=== PATIENT | female | born 2005 | race Caucasian/White ===

== ENCOUNTER 2023-01-31 21:05 | Emergency (ER) | payer OTHER ==
[~2023-01-31] VITALS: Ht 167.6 cm; Wt 66.6 kg
[2023-01-31] MEDS ORDERED: PREN1CHW PO (21:11)
[2023-01-31 21:55] LABS: BASO # 0.1 10^3/uL (0.0-0.2); BASO % 0.6 % (0.0-1.0); EOS # 0.2 10^3/uL (0.0-0.5); EOS % 2.1 % (0.0-3.0); HEMATOCRIT 37.2 % (36.0-47.0); HEMOGLOBIN 12.6 g/dl (12.0-15.5); LYMPH # 2.1 10^3/uL (1.5-5.0); LYMPH % 19.4 % (24.0-44.0); MEAN CORPUSCULAR HEMOGLOBIN 29.4 pg (27.0-33.0); MEAN CORPUSCULAR HGB CONC 33.9 g/dl (32.0-36.5); MEAN CORPUSCULAR VOLUME 86.7 fl (80.0-96.0); MONO # 0.8 10^3/uL (0.0-0.8); MONO % 7.7 % (2.0-8.0); NEUTROPHILS # 7.6 10^3/uL (1.5-8.5); NEUTROPHILS % 69.9 % (36.0-66.0); PLATELET COUNT, AUTOMATED 241 10^3/uL (150-450); RED BLOOD COUNT 4.29 10^6/uL (4.00-5.40); WHITE BLOOD COUNT 10.8 10^3/uL (4.0-10.0)
[2023-01-31 22:30] LABS: APPEARANCE, URINE CLEAR (CLEAR); BACTERIA, URINE AUTO 2+ (NEGATIVE); BILIRUBIN, URINE AUTO NEGATIVE (NEGATIVE); BLOOD, URINE BLOOD NEGATIVE (NEGATIVE); COLOR, URINE STRAW (YELLOW); GLUCOSE, URINE (UA) AUTO NEGATIVE (NEGATIVE); KETONE, URINE AUTO NEGATIVE (NEGATIVE); LEUKOCYTE ESTERASE, URINE AUTO NEGATIVE (NEGATIVE); MUCUS, URINE SMALL (NEGATIVE); NITRITE, URINE AUTO NEGATIVE (NEGATIVE); PROTEIN, URINE AUTO NEGATIVE (NEGATIVE); RBC, URINE AUTO 0 /HPF (0-3); SPECIFIC GRAVITY URINE AUTO 1.004 (1.002-1.035); SQUAMOUS EPITHELIAL CELL UR AU 3 /HPF (0-6); UROBILINOGEN, URINE AUTO 0.2 mg/dL (0.0-2.0); WBC, URINE AUTO 1 /HPF (0-3)
[2023-01-31 22:45] LABS: HCG, SERUM QUANTITATIVE 77528.7 MIU/ML (<4.2)
[2023-01-31 23:37] LABS: LIPASE 29 U/L (12-53)
[2023-01-31 23:39] LABS: ALBUMIN 3.8 G/DL (3.2-5.2); ALKALINE PHOSPHATASE 74 U/L (46-116); ALT/SGPT 18 U/L (7.0-40); AST/SGOT < 8 U/L (<34); BILIRUBIN,DIRECT < 0.1 MG/DL (<0.4); BILIRUBIN,TOTAL 0.2 MG/DL (0.3-1.2); BLOOD UREA NITROGEN 6 MG/DL (9-23); CALCIUM LEVEL 9.6 MG/DL (8.5-10.1); CARBON DIOXIDE LEVEL 26 MMOL/L (20-31); CHLORIDE LEVEL 105 MMOL/L (98-107); CREATININE FOR GFR 0.52 MG/DL (0.55-1.30); GLUCOSE, FASTING 84 MG/DL (60-100); POTASSIUM SERUM 4.6 MMOL/L (3.5-5.1); SODIUM LEVEL 136 MMOL/L (136-145); TOTAL PROTEIN 6.7 G/DL (5.7-8.2)
[2023-01-31] MEDS ORDERED: MAALOX 30 ML SUSP *UDC PO ONE (23:40)
[2023-02-01 02:00] VITALS: BP 108/58; TEMP 98.6; O2SAT 100
[2023-02-02] MEDS ORDERED: NITR1CAP11 PO (16:41)
== END 2023-02-01 02:16 | disposition home or self-care (01) ==
LOC: M ED 21:05
DX: O99.611 Diseases of the digestive system complicating pregnancy, first trimester (principal); K30 Functional dyspepsia; Z3A.08 8 weeks gestation of pregnancy; Z79.810 Long term (current) use of selective estrogen receptor modulators (SERMs)

== ENCOUNTER 2023-09-15 21:37 | Inpatient (IN) | payer OTHER ==
[~2023-09-15] VITALS: Ht 167.6 cm; Wt 87.8 kg
[~2023-09-15 21:37] MED LIST: NITR1CAP11 PO; PREN1CHW PO
[2023-09-15] MEDS ORDERED: OXYTOCIN INJ 10UNITS/ML 1ML VIAL IM PRN (21:50)
[2023-09-15] MEDS ORDERED: HOME MED LIST COMPLETE! XX SCH (21:50)
[2023-09-15] MEDS ORDERED: TRANEXAMIC ACID INJection 1,000 MG in NS 100 ML IV PRN (21:50)
[2023-09-15] MEDS ORDERED: METHYLERGONOVINE MALEATE 0.2MG/ML 1ML VIAL IM PRN (21:50)
[2023-09-15] MEDS ORDERED: CARBOPROST TROMETHAMINE 250 MCG/ML AMP IM PRN (21:50)
[2023-09-15] MEDS: LR 1,000 ML IV ONE (22:25)
[2023-09-15 22:34] LABS: BASO # 0.1 10^3/uL (0.0-0.2); BASO % 0.5 % (0.0-1.0); EOS # 0.3 10^3/uL (0.0-0.5); EOS % 1.9 % (0.0-3.0); HEMATOCRIT 37.3 % (36.0-47.0); HEMOGLOBIN 13.4 g/dl (12.0-15.5); LYMPH # 2.8 10^3/uL (1.5-5.0); LYMPH % 21.4 % (24.0-44.0); MEAN CORPUSCULAR HEMOGLOBIN 31.5 pg (27.0-33.0); MEAN CORPUSCULAR HGB CONC 35.9 g/dl (32.0-36.5); MEAN CORPUSCULAR VOLUME 87.6 fl (80.0-96.0); MONO # 1.1 10^3/uL (0.0-0.8); MONO % 8.2 % (2.0-8.0); NEUTROPHILS # 8.9 10^3/uL (1.5-8.5); NEUTROPHILS % 67.5 % (36.0-66.0); PLATELET COUNT, AUTOMATED 236 10^3/uL (150-450); RED BLOOD COUNT 4.26 10^6/uL (4.00-5.40); WHITE BLOOD COUNT 13.2 10^3/uL (4.0-10.0)
[2023-09-15 22:47] VITALS: BP 170/98
[2023-09-15] MEDS: LABETALOL 100MG/20ML VIAL IV STA (22:47)
[2023-09-15 22:59] LABS: LDH LACTATE DEHYDROGENASE 201 U/L (120-246)
[2023-09-15 23:00] LABS: ALT/SGPT 13 U/L (7.0-40); AST/SGOT 13 U/L (<34); BILIRUBIN,TOTAL 0.2 MG/DL (0.3-1.2)
[2023-09-15] MEDS ORDERED: EPIDURAL/PCA KEYS XX PRN (23:10)
[2023-09-15] MEDS ORDERED: LR 500 ML IV PRN (23:10)
[2023-09-15] MEDS ORDERED: ONDANSETRON 4MG 2ML VIAL IV PRN (23:10)
[2023-09-15] MEDS ORDERED: NALOXONE INJ 0.4MG/1ML VIAL IV PRN (23:10)
[2023-09-15] MEDS ORDERED: diphenhydrAMINE 50MG/ML VIAL IV PRN (23:10)
[2023-09-15] MEDS ORDERED: ePHEDrine SULFATE 25 MG/5 ML(5MG/ML) SYRINGE IVP PRN (23:10)
[2023-09-15] MEDS: FENTANYL/ROPIVACAINE/NACL BAG 100 ML EPIDURAL SCH (23:24)
[2023-09-16] VITALS (19 sets, daily range): BP systolic 121–145; BP diastolic 67–92; TEMP 99; O2SAT 97–99
[2023-09-16 00:47] LABS: TOTAL PROTEIN,RANDOM URINE 29.2 MG/DL (0.0-14.0)
[2023-09-16 00:52] LABS: CREATININE,RANDOM URINE 75.1 MG/DL
[2023-09-16] MEDS: OXYTOCIN DRIP 30 UNITS in IV 1 EA IV PRN (08:59)
[2023-09-16] MEDS ORDERED: METHYLERGONOVINE MALEATE 0.2 MG TAB PO PRN (09:00)
[2023-09-16] MEDS ORDERED: RHOGAM 300MCG (1500IU) INJ IM SCH (09:00)
[2023-09-16] MEDS: OXYTOCIN DRIP 30 UNITS in IV 1 EA IV SCH (09:08)
[2023-09-16] MEDS: PRENATAL VITAMINS CHEWABLE TABLET PO SCH (09:59)
[2023-09-16] MEDS: IBUPROFEN 800 MG TAB PO PRN (10:00)
[2023-09-16] MEDS: ACETAMINOPHEN 500 MG TAB PO PRN (18:49)
[2023-09-16] MEDS: DOCUSATE SODIUM 100MG CAPSULE PO PRN (18:49)
[2023-09-17] MEDS: METHYLERGONOVINE MALEATE 0.2MG/ML 1ML VIAL IM STA (01:56)
[2023-09-17 06:00] VITALS: BP 118/76; O2SAT 98
[2023-09-17 18:00] VITALS: BP 132/75; O2SAT 99
[2023-09-17] MEDS: IBUPROFEN 600MG TAB PO PRN (19:59)
[2023-09-17] MEDS: DIBUCAINE 1% OINTMENT 30GM TOP PRN (20:00)
[2023-09-17] MEDS: ACETAMINOPHEN TAB 650MG DOSE (2X325MG) PO PRN (21:06)
[2023-09-18 06:00] VITALS: BP 138/82; O2SAT 96
[2023-09-18] MEDS ORDERED: ACET1TAB55 PO (07:32)
[2023-09-18] MEDS ORDERED: COLA100C5 PO (07:32)
[2023-09-18] MEDS ORDERED: IBUP-1022 PO (07:32)
[2023-09-18 08:26] VITALS: BP 138/82; TEMP 97.6; O2SAT 96
[2023-09-18] MEDS ORDERED: MEASLES,MUMPS,RUBELLA VACCINE INJ (MMR-II) SC.IMMUN ONE (09:00)
== END 2023-09-18 13:13 | disposition home or self-care (01) | DRG 807 ==
LOC: M LDO 21:37 → M LDI 21:59 → M OBS 09-16 11:03
PROVIDERS: ADMIT Obstetrics & Gynecology; ATTEND Obstetrics & Gynecology
PROC: 10E0XZZ Delivery of Products of Conception, External Approach (ICD-10-PCS; principal; 2023-09-16)
PROC: 0KQM0ZZ Repair Perineum Muscle, Open Approach (ICD-10-PCS; 2023-09-16)
DX: O48.0 Post-term pregnancy (principal); Z37.0 Single live birth; Z3A.40 40 weeks gestation of pregnancy; O70.1 Second degree perineal laceration during delivery; O26.02 Excessive weight gain in pregnancy, second trimester; O14.94 Unspecified pre-eclampsia, complicating childbirth; O36.0990 Maternal care for other rhesus isoimmunization, unspecified trimester, not applicable or unspecified

== ENCOUNTER 2024-03-08 11:22 | Emergency (ER) | payer OTHER ==
[~2024-03-08] VITALS: Ht 167.6 cm; Wt 68.7 kg
[~2024-03-08 11:22] MED LIST changes: +ACET1TAB55 PO; +COLA100C5 PO; +IBUP-1022 PO; +NITR100C3 PO; -NITR1CAP11 PO
[2024-03-08 14:23] VITALS: BP 115/81; TEMP 97.9; O2SAT 95
== END 2024-03-08 14:24 | disposition home or self-care (01) ==
LOC: M ED 11:22
DX: N90.7 Vulvar cyst (principal); Z91.013 Allergy to seafood; Z79.1 Long term (current) use of non-steroidal anti-inflammatories (NSAID); Z79.899 Other long term (current) drug therapy

== ENCOUNTER → 2025-02-21 | Outpatient (CLI) | payer OTHER | LOC: M WHC 12:12 | PROVIDERS: ATTEND Advanced Practice Midwife | DX: O36.63X0 Maternal care for excessive fetal growth, third trimester, not applicable or unspecified (principal); Z3A.34 34 weeks gestation of pregnancy ==

== ENCOUNTER → 2025-03-05 | Outpatient (REF) | payer OTHER | LOC: M PLALAB 08:25 | PROVIDERS: ATTEND Advanced Practice Midwife | DX: Z34.83 Encounter for supervision of other normal pregnancy, third trimester (principal); Z36.85 Encounter for antenatal screening for Streptococcus B ==

== ENCOUNTER 2025-03-23 21:15 | Inpatient (IN) | payer OTHER ==
[~2025-03-23] VITALS: Ht 167.6 cm; Wt 83.3 kg
[2025-03-23] MEDS ORDERED: OXYTOCIN INJ 10UNITS/ML 1ML VIAL As Ordered ONE (21:26)
[2025-03-23] MEDS ORDERED: LIDOCAINE 1% MDV 20 ML VIAL As Ordered ONE (21:31)
[2025-03-23] MEDS: OXYTOCIN INJ 10UNITS/ML 1ML VIAL IM ONE (21:34)
[2025-03-23] MEDS: LIDOCAINE 1% MDV 20 ML VIAL SC ONE (21:36)
[2025-03-23 21:43] LABS: CORD GAS ABE V -2.3; CORD GAS HCO3 V 21.1 MMOL/L; CORD GAS O2 SAT V 86.5 %; CORD GAS PCO2 V 33.1 mmHg; CORD GAS PH V 7.423 UNITS; CORD GAS PO2 V 38.8 mmHg; CORD GAS SBC V 22.3 MMOL/L; CORD GAS TCO2 V 22.1 MMOL/L
[2025-03-23 21:44] LABS: CORD GAS ABE A -3.6; CORD GAS HCO3 A 19.5 MMOL/L; CORD GAS O2 SAT A 82.1 %; CORD GAS PCO2 A 30.8 mmHg; CORD GAS PH A 7.42 UNITS; CORD GAS PO2 A 35.5 mmHg; CORD GAS SBC A 21.1 MMOL/L; CORD GAS TCO2 A 20.5 MMOL/L
[2025-03-23 22:00] VITALS: BP 125/76
[2025-03-23] MEDS ORDERED: OXYTOCIN INJ 10UNITS/ML 1ML VIAL IV PRN (22:05)
[2025-03-23] MEDS ORDERED: OXYTOCIN INJ 10UNITS/ML 1ML VIAL IM PRN (22:05)
[2025-03-23] MEDS ORDERED: LIDOCAINE 1% MDV 20 ML VIAL INFIL PRN (22:05)
[2025-03-23] MEDS ORDERED: TRANEXAMIC ACID INJection 1,000 MG in NS 100 ML IV PRN (22:05)
[2025-03-23] MEDS ORDERED: METHYLERGONOVINE MALEATE 0.2 MG/ML 1 ML VIAL IM PRN (22:05)
[2025-03-23] MEDS ORDERED: OXYTOCIN DRIP 30 UNITS in IV 1 EA IV PRN ×3 (22:05)
[2025-03-23] MEDS ORDERED: CARBOPROST TROMETHAMINE 250 MCG/ML AMP IM PRN (22:05)
[2025-03-23] MEDS ORDERED: RHOGAM 300MCG (1500IU) INJ IM SCH (22:15)
[2025-03-23] MEDS ORDERED: MOM 30 ML SUSPENSION UDC PO PRN (22:15)
[2025-03-23] MEDS ORDERED: ANUSOL HC CREAM 30 GM TOP PRN (22:15)
[2025-03-23] MEDS ORDERED: DOCUSATE SODIUM 100 MG CAPSULE PO PRN (22:15)
[2025-03-23] MEDS ORDERED: DIBUCAINE 1% OINTMENT 30 GM TOP PRN (22:15)
[2025-03-23 22:20] VITALS: BP 131/78
[2025-03-23 22:35] VITALS: BP 132/93
[2025-03-23 22:50] VITALS: BP 135/85
[2025-03-23 23:15] LABS: PLATELET COUNT, AUTOMATED 240 10^3/uL (150-450)
[2025-03-24 00:05] VITALS: BP 131/77; O2SAT 98
[2025-03-24 00:12] LABS: HIV 1&2 SCREEN NEGATIVE (NEGATIVE)
[2025-03-24 00:20] LABS: HEPATITIS C VIRUS ABY INDEX < 0.02 INDEX (<0.8)
[2025-03-24] MEDS: IBUPROFEN 800 MG TAB PO PRN (00:25)
[2025-03-24] MEDS: LACTATED RINGER'S 1000 ML IV STA (01:19)
[2025-03-24 06:00] VITALS: BP 140/74; O2SAT 99
[2025-03-24] MEDS: PRENATAL VITAMINS CHEWABLE TABLET PO SCH (09:00)
[2025-03-24] MEDS: ACETAMINOPHEN 500 MG TAB PO PRN (14:25)
[2025-03-24 18:00] VITALS: BP 112/65; O2SAT 98
[2025-03-25 06:00] VITALS: BP 131/78; O2SAT 100
[2025-03-25] MEDS: MEASLES,MUMPS,RUBELLA VACCINE INJ (MMR-II) SC.IMMUN ONE (07:57)
[2025-03-25] MEDS ORDERED: IBUP-1022 PO (10:10)
[2025-03-25] MEDS ORDERED: ACET-683 PO (10:10)
== END 2025-03-25 16:30 | disposition home or self-care (01) | DRG 807 ==
LOC: M LDO 21:15 → M LDI 21:20 → M OBS 03-24
PROVIDERS: ADMIT Obstetrics & Gynecology; ATTEND Obstetrics & Gynecology
PROC: 10E0XZZ Delivery of Products of Conception, External Approach (ICD-10-PCS; principal; 2025-03-23)
PROC: F13Z0ZZ Hearing Screening Assessment (ICD-10-PCS; 2025-03-23)
DX: O62.3 Precipitate labor (principal); Z37.0 Single live birth; Z3A.38 38 weeks gestation of pregnancy; O70.0 First degree perineal laceration during delivery